=== PATIENT | male | born 1975 | race Caucasian/White ===

== ENCOUNTER → 2017-09-19 | Outpatient (CLI) | payer OTHER ==
[~2017-09-19] VITALS: Ht 403.9 cm; Wt 68.0 kg
[~2017-09-19] MED LIST: APAP650 PO; IBUPROFEN 800800 M1 PO
--- NOTE | ~2017-09-19 | HPC ---
[facility] [place] [address] PAIN MANAGEMENT CONSULTATION Name: NITESH DEGROOT Vinicio Room #: REG BRADLY Trejo#: [id number] Admission: 09/19/17 Attend Phys: Michelle De León MD Discharge: Date of : 71 Report #: [id number] THIS REPORT FOR: //name// CC: KATHIA physician/PCP Michelle Calderon M.D. DATE OF SERVICE: 09/19/2017 CHIEF COMPLAINT: Pain in the left shoulder blade, radiating down in the left arm, numbness in the pinky and ring finger. HISTORY OF PRESENT ILLNESS: The patient is a 41-year-old gentleman, who has been referred to the pain clinic for evaluation of pain involving his left arm, neck, shoulder with numbness and pain down into his ring and little finger on the left side. The patient states that his pain is quite problematic. It feels as though his "elbow was broken." Pain is worse with certain activities of daily living. He is not sure of anything that makes it significantly better. He describes it as burning, shooting, sharp and stabbing pain. It is a 4 today. It ranges between 3-5 depending on his level of activity. He notes a worsening of his pain when he is looking upwards as well as when he is painting. He notes that his pain has been quite problematic since 06/2017. He has been to the Emergency Room for evaluation of this. He has tried a number of medications without significant improvement. He is not having any significant problems involving his right arm. ALLERGIES: No known drug allergies. CURRENT MEDICATIONS: Ibuprofen 800 mg q. 8 hours p.r.n., acetaminophen 650 mg ER p.r.n. PAST MEDICAL HISTORY: Generally unremarkable. PAST SURGICAL HISTORY: Broken wrist with pins and bone graft, kidney stones. SOCIAL HISTORY: He works construction. He has not been working since start of this problem. He has been off for several months. Admits to smoking tobacco for 30 years, half pack per day. He is . REVIEW OF SYSTEMS: Questionnaire in the chart indicate generally good health, some fatigue and weakness, headaches, hearing loss/ringing in the ears, shortness of breath when lying flat, numbness and tingling sensation in the left arm with numbness down into his fingers, nervousness, and depression. PAIN CLINIC ASSESSMENT: 1. Osteoarthritis. The patient is not being [place] [address] PAIN MANAGEMENT CONSULTATION Name: NITESH DEGROOT Room #: REG CLI [facility]#: [id number] Admission: 09/19/17 Attend Phys: Michelle De León MD Discharge: Date of : 71 Report #: [id number] rheumatoid arthritis. 2. Height 5 feet 9 inches, weight 150 pounds, BMI 42. 3. VITAL SIGNS: Blood pressure 142/99, pulse 115, respiratory rate 14, room air saturation 98%. 4. Pain intensity 10/16. 5. Fall risk. The patient has not fallen in the last 3 months. 6. The patient is not on blood thinner. 7. The patient is not being treated for hypertension. 8. Opioid therapy. The patient is not receiving opioid medications on a regular basis. 9. Risk assessment tool. LABORATORY DATA: No laboratory value is available at the time of our interview. PHYSICAL EXAMINATION: GENERAL: The patient is a well-developed, well-nourished gentleman. Appearance: Appears his stated age. Orientation: The patient is alert and oriented x 3. Affect: The patient's affect is appropriate. Speech is normal. HEENT: Normocephalic, atraumatic. Extraocular eye muscles intact. Normal hearing. Normal sclerae. No sinus complaints. NECK: Without bruits, JVD or adenopathy. CHEST: Clear to auscultation. HEART: Regular rate. ABDOMEN: Nontender. MUSCULOSKELETAL: Normal without evidence of scoliosis, kyphosis or lordosis. Cranial nerves are grossly intact. EXTREMITIES: Upper motor muscle strength on the left and right is 5/5, research and development researcher strength 4/5 on the left. Right wrist is fused from the previous injury. The patient has soreness in the left scapular area. Notes numbness and tingling sensation in the left hand with numbness and tingling involving the ring and little finger. Lower extremity muscle strength 5/5, symmetrical, reflexes +2 at the knees. No clonus noted, able to stand on his heels and toes. IMPRESSION: Cervical radiculopathy involving the left hand with numbness, weakness and tenderness radiating down into the ring and index finger. RECOMMENDATIONS: We discussed treatment options with the patient. Risks and benefits of a cervical epidural steroid injection were discussed. Possible complications of the procedure were reviewed. They include, but are not limited to infection, increased muscle soreness, headache, bleeding, nerve damage. The patient's condition was discussed with him using models. Area of probable pathology was noted. The patient states that he understands and would like to proceed with an injection. PROCEDURE NOTE: The patient was assisted getting on the fluoroscopy table. His back was sterilely prepped in the cervical area. Betadine was used. [address] [address] PAIN MANAGEMENT CONSULTATION Name: NITESH DEGROOT Room #: REG BRADLY Trejo#: [id number] Admission: 09/19/17 Attend Phys: Michelle De León MD Discharge: Date of : 71 Report #: [id number] Fluoroscopy was used in an anterior, posterior as well as lateral positioning for targeting and placement of the injection. The C7-T1 interspace was sterilely prepped. This area was infiltrated with 0.25% bupivacaine. A 17-gauge Tuohy with loss of resistance technique was used to gain access to the epidural space. After appropriate placement with aspiration without heme or CSF, a total of 120 mg triamcinolone was injected. A 0.25% bupivacaine had been infiltrated into the area. The site was reviewed. There was no bleeding. The patient was then assisted to the recovery room where he remained for an appropriate amount of time. Total of 27 seconds fluoroscopy time was used. He will follow up in the future as needed. We would like to thank you for letting us participate in his care. We hope he continues to improve. <ELECTRONICALLY SIGNED> By: Michelle De León MD 10/05/17 0825 [id number] Michelle De León MD /nt
[2017-09-19 12:55] VITALS: BP 142/99
== END | disposition home or self-care (01) ==
LOC: PAIN 07:09
DX: M54.12 Radiculopathy, cervical region (principal); Z68.41 Body mass index [BMI] 40.0-44.9, adult; M19.90 Unspecified osteoarthritis, unspecified site; F17.200 Nicotine dependence, unspecified, uncomplicated

== ENCOUNTER → 2017-10-03 | Outpatient (CLI) | payer OTHER ==
[~2017-10-03] VITALS: Ht 175.3 cm; Wt 71.7 kg
--- NOTE | ~2017-10-03 | HPC ---
[facility] [place] [address] PAIN MANAGEMENT CONSULTATION Name: NITESH DEGROOT Room #: REG BRADLY Neil#: [id number] Admission: 10/03/17 Attend Phys: Michelle De León MD Discharge: Date of : 71 Report #: [id number] THIS REPORT FOR: //name// CC: KATHIA physician/PCP Michelle Calderon MD DATE OF SERVICE: 10/03/2017 FOLLOWUP COMPLAINT: The patient is a 41-year-old gentleman, who has been seen in the pain clinic because of cervical radiculopathy. He returns today indicating that his pain continues involving his left arm. He rates it as a 7-8/10. He continues to have pain that involves his left shoulder. He has some pain in the area of his neck, which continues to be problematic down into his arm. He describes it as aching and poking. He notes that it is worse when he is sitting as well as in certain positions. He notes it improves with rest. He underwent a cervical epidural steroid injection at the last visit. He feels like things have intensified. He has tried medications and other conservative treatments. ALLERGIES: No known drug allergies. MEDICATIONS: Current medications, Ibuprofen 800 mg p.o. q.8 hours p.r.n. and Tylenol 650 mg p.r.n. PAIN CLINIC ASSESSMENT: 1. Osteoarthritis. The patient is not being treated for osteoarthritis. 2. Pain intensity 7-8/10. 3. Fall risk. The patient has not fallen in the last 3 months. 4. Blood thinner. The patient is not on a blood thinner. 5. Hypertension. The patient has not being treated for hypertension. 6. Opioid therapy greater than 6 weeks. The patient is not being treated with opioid therapy. 7. Risk assessment tool. 8. Functional assessment tool. 9. Recreational drug use. 10. Tobacco: The patient smokes 1 pack of cigarettes per day. 11. Alcohol: The patient denies use of regular alcohol use. LABORATORY DATA: No new laboratory values are available at the time of our interview. PHYSICAL EXAMINATION: GENERAL: The patient is a well-developed, well-nourished white male. Appearance: Appears to be his stated age. Orientation: He is alert and oriented x 3. Affect: The patient's affect is appropriate. Speech is normal. [address] [address] PAIN MANAGEMENT CONSULTATION Name: NITESH DEGROOT Room #: REG BRADLY Neil#: [id number] Admission: 10/03/17 Attend Phys: Michelle De León MD Discharge: Date of : 71 Report #: [id number] Height 5 feet 9 inches, weight 158 pounds, and BMI is 23.3. VITAL SIGNS: Blood pressure 154/107, pulse 112, respiratory rate 16, and room air saturation is 97%. HEENT: Normocephalic and atraumatic. Extraocular eye muscles intact. Sclerae nonicteric. Hearing within normal limits. Mucous membranes moist. NECK: Without bruits or JVD. No adenopathy. CHEST: Clear to auscultation without rhonchi or wheezing. HEART: Regular rate. Normal tones. ABDOMEN: Nontender. MUSCULOSKELETAL: No evidence of scoliosis, kyphosis, or lordosis. Cranial nerves grossly intact. EXTREMITIES: Upper muscle strength on the left and right, rated as 5/5 with pathological technician strength on the left at 4.5. Right wrist is fused from previous injury. The patient has some soreness in the left scapular area, which continues. He has some numbness and tingling sensations in left hand with tingling down in the ring finger and little finger. Lower extremities, muscle strength 5/5 and symmetrical. Reflexes +2 at the knees. No clonus. Able to stand on heels and toes. IMPRESSION: Cervical radiculopathy involving the left hand with numbness, tenderness, and weakness involving the ring finger and index finger area. RECOMMENDATIONS: We discussed treatment options with the patient. Risks and benefits of an additional cervical epidural steroid injection were discussed. Possible complications were reviewed. They include but are not limited to infection, increased muscle soreness, headache, bleeding, nerve damage, paresis, and weakness. The patient elects to proceed. PROCEDURE NOTE: The patient was assisted to the procedure room. He was helped on the fluoroscopy table. His back was sterilely prepped in the cervical area with Betadine. Fluoroscopy used in the anterior, posterior as well as lateral positioning for targeting was introduced. The C7/T1 interspace was sterilely prepped. This area was infiltrated with 0.25% bupivacaine. A 17-gauge Tuohy with loss of resistance technique was used to gain access to the epidural space. There was no CSF, heme, or paresthesia. Total of 120 mg triamcinolone was injected. The patient tolerated the procedure well. A Band-Aid was placed. There was no bleeding. The patient was then assisted to the recovery room where he remained for an appropriate amount of time. Total of 16 seconds fluoroscopy time was used. His pain decreased from 7-0 at the time of discharge. He will follow up in the future as needed. [address] [address] PAIN MANAGEMENT CONSULTATION Name: NITESH DEGROOT Room #: REG BRADLY Trejo#: [id number] Admission: 10/03/17 Attend Phys: Michelle De León MD Discharge: Date of : 71 Report #: [id number] We would like to thank you for letting us to participate in his care. We hope he continues to improve. By: 1541 020 Michelle De León MD /BERNARD
[2017-10-03 10:21] VITALS: BP 154/107
== END | disposition home or self-care (01) ==
LOC: PAIN 07:02
DX: M54.12 Radiculopathy, cervical region (principal); M19.90 Unspecified osteoarthritis, unspecified site; I10 Essential (primary) hypertension; F11.20 Opioid dependence, uncomplicated; Z87.891 Personal history of nicotine dependence; Z79.899 Other long term (current) drug therapy; F17.210 Nicotine dependence, cigarettes, uncomplicated